=== PATIENT | male | born 1985 | race Native Hawaiian/Other Pacific Islander ===

== ENCOUNTER 2017-05-15 12:20 | Emergency (ER) | payer OTHER ==
[2017-05-15] MEDS ORDERED: NEOMYCIN/POLYMYX/DEXAMETH OPHTH DROPS 5 ML LEFTEYE STA (13:47)
--- NOTE | 2017-05-15 13:50 | ED Physician Documentation ---
PD HPI OPHTHO - Stated complaint Stated Complaint: L EYE SWOLLEN - Chief complaint Chief Complaint: Heent - History obtained from History obtained from: Patient - History of Present Illness Timing - onset: Yesterday Timing - duration: Days (2) Timing - details: Gradual onset, Still present Location: Left Quality / character: Aching Associated symptoms: Redness, Swelling, Discharge Similar symptoms before: No diagnosis Recently seen: Not recently seen - Additional information Additional information: 31-year-old male developed some swelling in his left eye yesterday and he has his lid swollen shut this morning. He states that he has had something similar to this previously with a little bit of swelling in the eyelid but never anything that is progressed or been this extensive. He does not have any visual acuity changes he does not have foreign body sensation he does not have much in the way of pain. Review of Systems Constitutional: denies: Fever, Chills, Myalgias, Fatigue Eyes: reports: Irritation. denies: Loss of vision, Decreased vision, Photophobia, Discharge Ears: denies: Loss of hearing, Ear pain Nose: denies: Rhinorrhea / runny nose, Congestion Throat: denies: Sore throat Respiratory: denies: Cough GI: denies: Vomiting : denies: Dysuria Skin: denies: Rash Musculoskeletal: denies: Neck pain, Back pain PD PAST MEDICAL HISTORY - Past Medical History Past Medical History: Yes Musculoskeletal: Chronic back pain - Past Surgical History Past Surgical History: No - Present Medications Home Medications: Ambulatory Orders Medication Instructions Recorded Confirmed Cyclobenzaprine [Flexeril] 10 mg PO BID PRN 05/15/17 05/15/17 Gabapentin 100 mg PO TID PRN 05/15/17 05/15/17 Neomycin/Poly/Dex Ophth Drops 1 drops LEFTEYE QID #1 bottle 05/15/17 [Maxitrol Ophth Drops] Ondansetron Odt [Zofran Odt] 4 mg PO PRN PRN 05/15/17 05/15/17 - Allergies Allergies/Adverse Reactions: Allergies Allergy/AdvReac Type Severity Reaction Status Date / Time No Known Drug Allergies Allergy Verified 05/15/17 12:37 - Social History Does the pt smoke?: Yes Smoking Status: Current every day smoker Does the pt drink ETOH?: Yes Does the pt have substance abuse?: No - Immunizations Immunizations are current?: Yes - POLST Patient has POLST: No PD ED PE NORMAL - Vitals Vital signs reviewed: Yes (normal ) - General General: No acute distress, Well developed/nourished - HEENT HEENT: Atraumatic, PERRL, EOMI, Other (There is swelling of the upper lid on the left and there is an area over the central eyelid consistent with a sty. There is no lower conjunctival injection and no scleral injection. ) - Respiratory Respiratory: No respiratory distress - Derm Derm: Normal color, Warm and dry, No rash - Extremities Extremities: No deformity, No edema - Neuro Neuro: No motor deficit, No sensory deficit - Psych Psych: Normal mood, Normal affect Results - Vitals Vitals: Vital Signs - 24 hr 05/15/17 12:34 Temperature 36.9 C Heart Rate 70 Respiratory 16 Rate Blood Pressure 119/74 O2 Saturation 99 Oxygen O2 Source Room air PD MEDICAL DECISION MAKING - ED course Complexity details: considered differential, d/w patient ED course: 31-year-old otherwise healthy male with swelling to the left upper eyelid. This appears to me to be a stye. He is administered Maxitrol eye drops. Departure - Departure Disposition: 01 Home, Self Care Clinical Impression: Stye external Qualifiers: Laterality: left Eyelid: upper Qualified Code(s): H00.014 - Hordeolum externum left upper eyelid Condition: Stable Instructions: ED [facility] Follow-Up: Comfort Acosta MD [Primary Care Provider] - Prescriptions: Neomycin/Poly/Dex Ophth Drops [Maxitrol Ophth Drops] 1 drops LEFTEYE QID #1 bottle Forms: Activity restrictions
[2017-05-15] MEDS ORDERED: NEOMYCIN/POLYMYX/DEXAMETH OPHTH OINT ONE (14:06)
[2017-05-15] MEDS ORDERED: NEOMYCIN/POLYMYX/DEXAMETH OPHTH DROPS 5 ML ONE (14:11)
[2017-05-15 14:28] VITALS: BP 116/84
== END 2017-05-15 14:27 | disposition home or self-care (01) ==
LOC: ED 12:20
DX: H00.014 Hordeolum externum left upper eyelid (principal); F17.200 Nicotine dependence, unspecified, uncomplicated
CPT/HCPCS: 99283; J3490